=== PATIENT | male | born 1975 | race Two or more races ===

== ENCOUNTER 2017-06-20 10:30 | Emergency (ER) | payer OTHER ==
[~2017-06-20] VITALS: Ht 180.3 cm; Wt 83.9 kg
[~2017-06-20 10:30] MED LIST: INTESTINEX1 CAP PO; PROTONIX40 MG PO
[2017-06-20] MEDS ORDERED: MEDROLPACK PO (12:09)
== END 2017-06-20 12:48 | disposition home or self-care (01) ==
LOC: ER 10:30
DX: M72.2 Plantar fascial fibromatosis (principal)